=== PATIENT | female | born 1950 | race Caucasian/White ===

== ENCOUNTER 2016-07-04 08:18 | Emergency (ER) | payer MEDICARE, BC ==
[~2016-07-04] VITALS: Ht 162.6 cm; Wt 62.0 kg
[~2016-07-04 08:18] MED LIST: ACYCLOVIR800 MG PO; B-121000 MC1 PO; BACTRIM DS1 TAB PO; CENTRUM SILVER PO; EC ASPIRIN325 MG PO; FLUARIX QUADRIV1 IN1 IM; FLUARIX QUADRIV1 INJ IM; FLULAVAL IM; LOSARTAN POT50 MG PO; NEURONTIN300 MG PO; NORVASC PO; NORVASC5 MG PO; SIMVASTATIN10 MG PO; SIMVASTATIN20 MG PO; SIMVASTATIN40 MG PO; VITAMIN D2000 UNI1 PO
[2016-07-04] MEDS ORDERED: BENADRYL 50MG C50 MG PO (08:56)
[2016-07-04] MEDS ORDERED: PREDNISONE10 MG PO (08:56)
[2016-07-04] MEDS ORDERED: CIMETIDINE400 M1 PO (08:56)
[2016-07-04 09:09] VITALS: BP 168/77
== END 2016-07-04 09:16 | disposition home or self-care (01) ==
LOC: ED 08:18
DX: L50.9 Urticaria, unspecified (principal); R21 Rash and other nonspecific skin eruption